=== PATIENT | male | born 1975 | race Caucasian/White ===

== ENCOUNTER 2017-12-28 15:33 | Observation (INO) | payer SELFPAY ==
[~2017-12-28] VITALS: Ht 167.6 cm; Wt 75.9 kg
[2017-12-28 16:55] LABS: BASOPHIL (%) 0.7 % (0-1); BASOPHIL COUNT 0.1 K/uL (0-0.1); EOSINOPHIL (%) 1.5 % (0-5); EOSINOPHIL COUNT 0.1 K/uL (0-0.3); HEMATOCRIT 40.2 % (38.0-50.0); HEMOGLOBIN 14.3 G/DL (12.5-16.6); IMMATURE GRANULOCYTE (%) 0.5 % (0.0-0.7); LYMPHOCYTE (%) 26.1 % (15-42); LYMPHOCYTE COUNT 2.2 K/uL (1.0-2.8); MCHC 35.6 G/DL (30.0-36.0); MCV 98.5 FL (86-99); MONOCYTE (%) 7.9 % (3-12); MONOCYTE COUNT 0.7 K/uL (0-0.8); NEUTROPHIL (%) 63.3 % (45-76); NEUTROPHIL COUNT 5.4 K/uL (1.8-6.4); PLATELET COUNT 165 K/uL (156-360); RBC DIS.WIDTH-CV 13.2 % (11.8-14.6); RBC DIS.WIDTH-SD 47.5 % (39-53); RED BLOOD COUNT 4.08 M/uL (4.00-5.50); WHITE BLOOD COUNT 8.5 K/uL (4.1-10.2)
[2017-12-28 17:05] LABS: D-DIMER ELISA < 150.00 ng/mLDDU (<230); PTT 30.2 SEC (25-37)
[2017-12-28 17:29] LABS: CHLORIDE 108 MEQ/L (99-109); POTASSIUM 3.7 MEQ/L (3.7-5.4); SODIUM 140 MEQ/L (136-147)
[2017-12-28 17:35] LABS: CREATININE 0.9 MG/DL (0.6-1.3); GFR ESTIMATE (CALCULATED) > 59 mL/min/ (58.99-99999); GLUCOSE 87 mg/dL (70-99); UREA NITROGEN (BUN) 8 mg/dL (9-23)
[2017-12-28 17:39] LABS: TROP-I INTERPRETATION NEGATIVE; TROPONIN-I < 0.01 ng/mL (0.0-0.30)
[2017-12-28] MEDS ORDERED: VOLTAREN75 MG PO (18:25)
[2017-12-28 19:39] LABS: ALBUMIN 4.1 G/DL (3.2-4.8); DIRECT BILIRUBIN 0.1 mg/dL (0.0-0.3); TOTAL BILIRUBIN 0.4 MG/DL (0.0-1.0)
[2017-12-28 19:45] LABS: ALKALINE PHOSPHATASE 76 IU/L (3-129); ALT (GPT) 26 IU/L (3-49); AST (GOT) 33 IU/L (2-34); HDL CHOLESTEROL 45 MG/DL (Desirable>=40); LDL CHOLESTEROL 67 mg/dL (Desirable<100); LIPASE 24 U/L (1.0-51.0); NON-HDL CHOLESTEROL 143 mg/dL (Desirable<160); TOTAL CHOLESTEROL 188 mg/dL (Desirable<200); TOTAL PROTEIN 6.7 G/DL (6.4-8.3); TRIGLYCERIDES 379 MG/DL (Normal: <150)
[2017-12-28 20:52] VITALS: BP 156/86
[2017-12-28 23:56] VITALS: BP 133/80
[2017-12-29 00:15] LABS: TROP-I INTERPRETATION NEGATIVE; TROPONIN-I < 0.01 ng/mL (0.0-0.30)
[2017-12-29 04:00] VITALS: BP 134/79
[2017-12-29 05:46] LABS: TROP-I INTERPRETATION NEGATIVE; TROPONIN-I < 0.01 ng/mL (0.0-0.30)
[2017-12-29 11:26] VITALS: BP 135/85
[2017-12-29] MEDS ORDERED: TRICOR145 MG PO (12:31)
== END 2017-12-29 13:41 | disposition home or self-care (01) ==
LOC: EME 15:33 → EDOF 19:15 → 4SOUTH 19:15 → ENRESERV 19:19 → 4SOUTH 20:42
PROVIDERS: Emergency Medicine; Hospitalist
DX: R07.89 Other chest pain (principal); F17.290 Nicotine dependence, other tobacco product, uncomplicated; E78.1 Pure hyperglyceridemia; I25.2 Old myocardial infarction; Z91.19 Patient's noncompliance with other medical treatment and regimen; G89.29 Other chronic pain; M54.9 Dorsalgia, unspecified; F10.10 Alcohol abuse, uncomplicated; Z82.49 Family history of ischemic heart disease and other diseases of the circulatory system
CPT/HCPCS: 71045; 80048; 80061; 80076; 83690; 84484; 85025; 85379; 85610; 85730; 93005; 93017; 99281; 99285; G0378; J3010